=== PATIENT | female | born 1935 | race Caucasian/White ===

== ENCOUNTER 2022-05-10 12:37 | Inpatient (IN) | payer BC, OTHER ==
[~2022-05-10] VITALS: Ht 162.6 cm; Wt 70.3 kg
[2022-05-10 13:04] VITALS: BP_SYST 141
--- NOTE | 2022-05-10 13:10 | NUR ---
Patient triaged and placed in waiting room. VSS and patient appears in no acute distress at this time. Accompanied by DAUGHTER, awaiting available bed, and MD notified of need for MSE.
[2022-05-10 14:32] LABS: BASOPHILS # (AUTO) 0.1 K/uL (0.0-0.2); BASOPHILS % (AUTO) 0.8 % (0.0-2.0); EOSINOPHILS # (AUTO) 0.8 K/uL (0.0-0.4); EOSINOPHILS % (AUTO) 7.9 % (0.0-4.0); HEMOGLOBIN 10.9 g/dL (12.0-16.0); LYMPHOCYTES # (AUTO) 1.8 K/uL (1.0-5.5); LYMPHOCYTES % (AUTO) 18.4 % (20.5-51.5); MEAN CORPUSCULAR HEMOGLOBIN 29 pg (27-31); MEAN CORPUSCULAR HGB CONC 33 % (32-36); MEAN CORPUSCULAR VOLUME 89 fL (79.0-98.0); MONOCYTES # (AUTO) 1.1 K/uL (0.0-1.0); MONOCYTES % (AUTO) 11.3 % (1.7-9.3); NEUTROPHILS # (AUTO) 5.9 K/uL (1.8-7.7); NEUTROPHILS % (AUTO) 61.6 % (40.0-70.0); PLATELET COUNT (AUTO) 377 K/uL (130-430); RED BLOOD CELL COUNT(AUTO) 3.72 MIL/uL (4.2-6.2); RED CELL DISTRIBUTION WIDTH 14.1 % (9.0-15.0); WHITE BLOOD COUNT (AUTO) 9.6 K/uL (4.8-10.8)
[2022-05-10 14:53] LABS: ANION GAP 6 (5-15); CALCIUM 8.8 mg/dL (8.4-11.0); CHLORIDE 99 mmol/L (98-107); CREATININE 0.76 mg/dL (0.55-1.30); GLUCOSE 108 mg/dL (70-99); UREA NITROGEN, BLOOD 14 mg/dL (8-21)
[2022-05-10 15:00] LABS: ALANINE AMINOTRANSFERASE 27 U/L (12-78); ALBUMIN 2.8 g/dL (3.4-4.8); ASPARTATE AMINOTRANSFERASE 22 U/L (10-37); TOTAL BILIRUBIN 0.4 mg/dL (0.0-1.0)
[2022-05-10 16:09] LABS: PROTHROMBIN TIME 10.8 SECS (9.5-12.5)
--- NOTE | 2022-05-10 16:45 | NUR ---
AT THE BEDSIDE WITH DR DUVAL FOR RECTAL EXAM, PT TOLERATED WELL
--- NOTE | 2022-05-10 16:54 | NUR ---
Placed in room 08 . Placed on shelter monitor, blood pressure machine and pulse oximeter. To gown for exam. Side rails up.
--- NOTE | 2022-05-10 16:55 | NUR ---
UA OBTAINED, LABELED AND TAKEN TO LAB
--- NOTE | 2022-05-10 17:20 | NUR ---
86-year-old female who presents to the ED with a 1 day history of black and tarry stools. Patient notes that she has had loose and nonbloody stool over the past 3-4 days. She took Imodium for the symptoms. She additionally notes having associated mild, crampy, and intermittent abdominal pain that is worse after eating "bad foods". Last colonoscopy reportedly 5 years ago and normal. Denies history of lower GI bleed, diverticulitis, or diverticulosis. Not currently on blood thinners. No other alleviating or exacerbating factors. Otherwise, patient denies urinary symptoms, chest pain, hemoptysis, nausea, vomiting, or any other medical complaints at this time.
--- NOTE | 2022-05-10 17:52 | NUR ---
Pt moved to room 6 [address] of [address] family bedside. MD discussed with family admission and procedural plan.
[2022-05-10 17:54] LABS: BILIRUBIN,URINE NEGATIVE (NEGATIVE); COLOR,URINE YELLOW (YELLOW); GLUCOSE,URINE NEGATIVE (NEGATIVE); KETONES,URINE NEGATIVE (NEGATIVE); LEUKOCYTE ESTERASE ,URINE 2+ (NEGATIVE); NITRITE, URINE NEGATIVE (NEGATIVE); PROTEIN URINE NEGATIVE (NEGATIVE); UROBILINOGEN,URINE 0.2 (0.2-1.0)
[2022-05-10 18:07] LABS: BLOOD, URINE TRACE (NEGATIVE)
[2022-05-10 18:08] LABS: CLARITY/URINE SLIGHTLY HAZY (CLEAR)
[2022-05-10 18:37] LABS: BACTERIA,URINE RARE /HPF (None Seen); MUCUS,URINE None Seen /LPF (None Seen); RBC,URINE 0-3 /HPF (0-3)
--- NOTE | 2022-05-10 19:15 | NUR ---
Report given to Pearl ROSS
--- NOTE | 2022-05-10 19:25 | NUR ---
Pt provided medication list with no dosage or route noted. Pt medication list: Lisinopril for htn, latanoprost for glycoma, fluticasone for sinus relief, simethicone for gas relief, pantoprazole 40mg unknown dosage amount.
--- NOTE | 2022-05-10 19:40 | NUR ---
PT RESTING IN BED AWAKE AND ALERT, TALKING TO NICKAGHTER. PT DENIES DISCOMFORT AND PAIN AT THIS TIME. PT VSS, SAFETY PRECAUTIONS IN PLACE AND CONNECTED TO MONITOR.
[2022-05-11] MEDS ORDERED: D5/0.45 NS 1,000 ML IV ONE (00:45)
--- NOTE | 2022-05-11 01:12 | NUR ---
Admit bed requested Patient will be admitted to care of Dr. WINKLER. Admitted to MED SURG unit. Diagnosis GI BLEED Inpatient (Yes or No) YES Observation (Yes or No) NO Orientation concerns or request close to nursing station (Yes or No) NO Covid Status NEGATIVE On vent or bipap NO Isolation requirements NO Needs a sitter NO From Home (Yes or if No enter name of facility) YES Requires Dialysis (Yes or No) NO Med Rec Completed (Yes of No) YES
--- NOTE | 2022-05-11 03:32 | NUR ---
PT RESTING IN BED WITH EYES CLOSED, EVEN AND UNLABORED RESPS NOTED. SAFETY PRECAUTIONS IN PLACE.
[2022-05-11 03:39] LABS: HEMATOCRIT 30.4 % (36-48); HEMOGLOBIN 10.1 g/dL (12.0-16.0)
[2022-05-11] MEDS ORDERED: BENZONATATE 100 MG CAPSULE (TESSALON) PO ONE (04:30)
--- NOTE | 2022-05-11 07:27 | NUR ---
REPORT GIVEN TO YI ROSS TO ASSUME ALL CARE.
--- NOTE | 2022-05-11 07:30 | NUR ---
RECEIVED REPORT FROM RN ROSE, PT IDA. JARRED
[2022-05-11] MEDS ORDERED: PANTOPRAZOLE SODIUM 40 MG/VIAL (PROTONIX) IVP ONE (09:00)
[2022-05-11 11:54] LABS: BASOPHILS # (AUTO) 0.1 K/uL (0.0-0.2); BASOPHILS % (AUTO) 0.9 % (0.0-2.0); EOSINOPHILS # (AUTO) 0.7 K/uL (0.0-0.4); EOSINOPHILS % (AUTO) 8.9 % (0.0-4.0); HEMATOCRIT 32.5 % (36-48); HEMOGLOBIN 10.6 g/dL (12.0-16.0); LYMPHOCYTES # (AUTO) 1.5 K/uL (1.0-5.5); LYMPHOCYTES % (AUTO) 20.1 % (20.5-51.5); MEAN CORPUSCULAR HEMOGLOBIN 29 pg (27-31); MEAN CORPUSCULAR HGB CONC 33 % (32-36); MEAN CORPUSCULAR VOLUME 89 fL (79.0-98.0); MONOCYTES # (AUTO) 0.9 K/uL (0.0-1.0); MONOCYTES % (AUTO) 12.5 % (1.7-9.3); NEUTROPHILS # (AUTO) 4.4 K/uL (1.8-7.7); NEUTROPHILS % (AUTO) 57.6 % (40.0-70.0); PLATELET COUNT (AUTO) 390 K/uL (130-430); RED BLOOD CELL COUNT(AUTO) 3.66 MIL/uL (4.2-6.2); RED CELL DISTRIBUTION WIDTH 13.8 % (9.0-15.0); WHITE BLOOD COUNT (AUTO) 7.6 K/uL (4.8-10.8)
--- NOTE | 2022-05-11 16:00 | NUR ---
RECIEVED PT REPORT FROM CODY RICHMOND. PT IS AWAKE ALERT X3. PT DENIES NVD.
--- NOTE | 2022-05-11 16:30 | NUR ---
PT AMBULATES STEADILY TO THE RESTROOM. AAOX3, BED RAILS UP BED DOWN.
[2022-05-11] MEDS ORDERED: BISACODYL 5 MG TABLET.DR (DULCOLAX) PO ONE (17:00)
[2022-05-11 17:44] LABS: BASOPHILS # (AUTO) 0.1 K/uL (0.0-0.2); BASOPHILS % (AUTO) 0.9 % (0.0-2.0); EOSINOPHILS # (AUTO) 0.5 K/uL (0.0-0.4); EOSINOPHILS % (AUTO) 7.6 % (0.0-4.0); HEMATOCRIT 30.6 % (36-48); HEMOGLOBIN 10.1 g/dL (12.0-16.0); LYMPHOCYTES # (AUTO) 1.6 K/uL (1.0-5.5); LYMPHOCYTES % (AUTO) 21.9 % (20.5-51.5); MEAN CORPUSCULAR HEMOGLOBIN 29 pg (27-31); MEAN CORPUSCULAR HGB CONC 33 % (32-36); MEAN CORPUSCULAR VOLUME 89 fL (79.0-98.0); MONOCYTES # (AUTO) 0.9 K/uL (0.0-1.0); MONOCYTES % (AUTO) 12.9 % (1.7-9.3); NEUTROPHILS # (AUTO) 4.1 K/uL (1.8-7.7); NEUTROPHILS % (AUTO) 56.7 % (40.0-70.0); PLATELET COUNT (AUTO) 353 K/uL (130-430); RED BLOOD CELL COUNT(AUTO) 3.44 MIL/uL (4.2-6.2); RED CELL DISTRIBUTION WIDTH 14.1 % (9.0-15.0); WHITE BLOOD COUNT (AUTO) 7.2 K/uL (4.8-10.8)
[2022-05-11] MEDS ORDERED: GOLYTELY / COLYTE SOLUTION 4 LITERS PO SCH (18:00)
--- NOTE | 2022-05-11 18:28 | NUR ---
PT AWAKE ALERT ORIENTED X3 NO COMPLAINTS, MEDICATED PER MD ORDER, PT EATING CLEAR LIQUID DIET.
--- NOTE | 2022-05-11 19:10 | NUR ---
REPORT GIVEN TO PIPE LINE GAUGERWINDOW CLERK.
[2022-05-11] MEDS: PANTOPRAZOLE SODIUM 40 MG/VIAL (PROTONIX) IVP SCH (19:46)
--- NOTE | 2022-05-11 19:46 | NUR ---
UNABLE TO OBTAIN GOLYTELY AT THIS TIME. PHARMACY DOES NOT ANSWER AND HOUSE SUP IS OCCUPIED AT THE MOMENT. MEDICATION WAS NOT PREPARED BY PHARMACY AND PLACED IN ER AND IS NOT AVAILABLE IN ER [facility]. WILL CONTINUE TO REMIND HOUSE SUP.
--- NOTE | 2022-05-11 20:15 | NUR ---
PREPED PATIENT WITH BEDSIDE COMMODE AND PLACED IN GOWN, PATIENT READY TO RECEIVE GOLYTELY.
[2022-05-11] MEDS ORDERED: PANTOPRAZOLE SODIUM 40 MG/VIAL (PROTONIX) IVP SCH ×2 (21:00)
--- NOTE | 2022-05-11 22:32 | NUR ---
PT IS TOLERATING GOLYTELY WELL.
[2022-05-11 23:07] LABS: BASOPHILS # (AUTO) 0.1 K/uL (0.0-0.2); BASOPHILS % (AUTO) 1.1 % (0.0-2.0); EOSINOPHILS # (AUTO) 0.7 K/uL (0.0-0.4); EOSINOPHILS % (AUTO) 8.3 % (0.0-4.0); HEMATOCRIT 33.2 % (36-48); HEMOGLOBIN 10.9 g/dL (12.0-16.0); LYMPHOCYTES # (AUTO) 2.1 K/uL (1.0-5.5); LYMPHOCYTES % (AUTO) 24.6 % (20.5-51.5); MEAN CORPUSCULAR HEMOGLOBIN 29 pg (27-31); MEAN CORPUSCULAR HGB CONC 33 % (32-36); MEAN CORPUSCULAR VOLUME 89 fL (79.0-98.0); MONOCYTES # (AUTO) 1.1 K/uL (0.0-1.0); MONOCYTES % (AUTO) 12.9 % (1.7-9.3); NEUTROPHILS # (AUTO) 4.5 K/uL (1.8-7.7); NEUTROPHILS % (AUTO) 53.1 % (40.0-70.0); PLATELET COUNT (AUTO) 433 K/uL (130-430); RED BLOOD CELL COUNT(AUTO) 3.73 MIL/uL (4.2-6.2); RED CELL DISTRIBUTION WIDTH 13.9 % (9.0-15.0); WHITE BLOOD COUNT (AUTO) 8.5 K/uL (4.8-10.8)
--- NOTE | 2022-05-12 00:37 | NUR ---
PATIENT IS HAVING A HARD TIME DRINKING THE GOLYTELY, STATES IT IS TOO SALTY AND HAS AN AWFUL TASTE. PATIENT HAS NOT HAD A BOWL MOVEMENT YET.
--- NOTE | 2022-05-12 01:48 | NUR ---
PATIENT HAD FIRST BOWL MOVEMENT.
--- NOTE | 2022-05-12 02:51 | NUR ---
PATIENT HAS HAS SEVERAL LOOSE STOOLS. C/O ABDOMINAL PAIN DUE TO DAIRRHEA.
[2022-05-12] MEDS ORDERED: BENZONATATE 100 MG CAPSULE (TESSALON) PO ONE (05:00)
[2022-05-12 05:35] LABS: BASOPHILS # (AUTO) 0.1 K/uL (0.0-0.2); BASOPHILS % (AUTO) 0.9 % (0.0-2.0); EOSINOPHILS # (AUTO) 0.7 K/uL (0.0-0.4); EOSINOPHILS % (AUTO) 8.4 % (0.0-4.0); HEMATOCRIT 33.8 % (36-48); HEMOGLOBIN 11.1 g/dL (12.0-16.0); LYMPHOCYTES % (AUTO) 25.9 % (20.5-51.5); MEAN CORPUSCULAR HEMOGLOBIN 29 pg (27-31); MEAN CORPUSCULAR HGB CONC 33 % (32-36); MEAN CORPUSCULAR VOLUME 89 fL (79.0-98.0); MONOCYTES % (AUTO) 13.5 % (1.7-9.3); NEUTROPHILS % (AUTO) 51.3 % (40.0-70.0); PLATELET COUNT (AUTO) 406 K/uL (130-430); WHITE BLOOD COUNT (AUTO) 7.7 K/uL (4.8-10.8)
[2022-05-12 05:50] LABS: PROTHROMBIN TIME 10.9 SECS (9.5-12.5)
--- NOTE | 2022-05-12 06:00 | NUR ---
WAITING ON [facility] TO BRING COUGH MEDICATION.
[2022-05-12 06:15] LABS: ANION GAP 6 (5-15); CHLORIDE 101 mmol/L (98-107); CREATININE 0.71 mg/dL (0.55-1.30); GLUCOSE 98 mg/dL (70-99); UREA NITROGEN, BLOOD 9 mg/dL (8-21)
--- NOTE | 2022-05-12 06:50 | NUR ---
Patient threw up. Stated she felt very nauseated from Golytely. Patient feels better after throwing up.
--- NOTE | 2022-05-12 07:05 | NUR ---
Made family aware that patient will be going to GI at 730 and will return at approx. 9am to the ER.
--- NOTE | 2022-05-12 07:20 | NUR ---
Patient will be admitted to care of [facility]. Admitted to MED SURG unit. Will go to room 134A. Belongings list completed. Complete and up to date summary report printed. SBAR report to be given at bedside with opportunity for questions.
--- NOTE | 2022-05-12 08:01 | NUR ---
REPORT GIVEN TO JAQUI ON MED SURG. BELONGINGS FROM ROOM #6 TAKEN TO ROOM. GI LAB INFORMED THAT PT IS TO GO TO 134A
[2022-05-12] MEDS ORDERED: fentaNYL CITRATE/PF 100 MCG/2 ML AMP IVP ONE (08:45)
[2022-05-12] MEDS ORDERED: MIDAZOLAM HCL 5 MG/ML VIAL (VERSED) IV ONE (08:45)
[2022-05-12] MEDS: PSYLLIUM HUSK 1 PKT PACKET PO SCH (09:00)
[2022-05-12] MEDS: PANTOPRAZOLE SODIUM 40 MG/VIAL (PROTONIX) IVP SCH ×2 (09:00→21:29)
--- NOTE | 2022-05-12 09:00 | NUR ---
PT ADMITTED TO [facility]. PT AOX4 ABLE TO MAKE NEEDS KNOWN. RR EVEN AND UNLABORED ON RA. PT SKIN INTACT. BOWL SOUND S ACTIVE. PT EDUCATED TO USE CALL LIGHT IF SHE NEEDS ASSISTANCE. BED ALARM ON. CALL LIGHT WITHIN REACH. ALL NEEDS MEET AT THIS TIME. WILL CONTINUE TO MONITOR
[2022-05-12 16:10] LABS: BASOPHILS # (AUTO) 0.1 K/uL (0.0-0.2); EOSINOPHILS # (AUTO) 0.4 K/uL (0.0-0.4); EOSINOPHILS % (AUTO) 6.4 % (0.0-4.0); HEMATOCRIT 30.8 % (36-48); HEMOGLOBIN 10.2 g/dL (12.0-16.0); LYMPHOCYTES # (AUTO) 1.8 K/uL (1.0-5.5); LYMPHOCYTES % (AUTO) 26.3 % (20.5-51.5); MEAN CORPUSCULAR HEMOGLOBIN 29 pg (27-31); MEAN CORPUSCULAR HGB CONC 33 % (32-36); MEAN CORPUSCULAR VOLUME 89 fL (79.0-98.0); MONOCYTES % (AUTO) 13.8 % (1.7-9.3); NEUTROPHILS # (AUTO) 3.7 K/uL (1.8-7.7); NEUTROPHILS % (AUTO) 52.5 % (40.0-70.0); PLATELET COUNT (AUTO) 366 K/uL (130-430); RED BLOOD CELL COUNT(AUTO) 3.48 MIL/uL (4.2-6.2); RED CELL DISTRIBUTION WIDTH 14.2 % (9.0-15.0)
[2022-05-12 16:40] VITALS: BP_SYST 132
--- NOTE | 2022-05-12 19:50 | NUR ---
PT CLEANED THROUGH SHIFT. PT DID NOT HAVE ANY BLACK TARRY STOOL DURING SHIFT. ENDORSED CARE TO NIGHT RN
[2022-05-12 20:00] VITALS: BP_SYST 121
[2022-05-13] VITALS: BP_SYST 119
[2022-05-13 08:00] VITALS: BP_SYST 106; BP_SYST 140
[2022-05-13] MEDS: PANTOPRAZOLE SODIUM 40 MG/VIAL (PROTONIX) IVP SCH (08:50)
[2022-05-13] MEDS: PSYLLIUM HUSK 1 PKT PACKET PO SCH (08:51)
--- NOTE | 2022-05-13 09:00 | NUR ---
pt seen by Dr Wade at bedside. Md went over out patient plan for the patient.
[2022-05-13] MEDS ORDERED: guaiFENesin/DEXTROMETHORPHAN 10 ML UDC PO PRN (10:30)
[2022-05-13 13:35] VITALS: BP_SYST 132
[2022-05-13] MEDS ORDERED: POLY17PO4 PO (14:40)
[2022-05-13] MEDS ORDERED: DEXL60CA4 PO (14:40)
[2022-05-13 16:06] VITALS: BP_SYST 148
[2022-05-13 16:30] VITALS: BP_SYST 148
--- NOTE | 2022-05-13 18:38 | NUR ---
pt dc home. pt received all education and paperwork. iv removed intact. pt understands to follow up with GI outpatient in a week. id bands removed. pt has all belongings. pt taken to the parking lot via wheelchair. pt taken home by her daughter
== END 2022-05-13 18:38 | disposition home health service (06) | DRG 393 ==
LOC: SED 12:37 → UNDOADMIN 05-11 00:42 → SMU 05-11 00:42 → UNDOADMIN 05-12 08:28 → SMU 05-12 08:31 → UNDODISIN 05-13 18:38
PROVIDERS: ADMIT Specialist; ATTEND Specialist
PROC: 0DB78ZX Excision of Stomach, Pylorus, Via Natural or Artificial Opening Endoscopic, Diagnostic (ICD-10-PCS; principal; 2022-05-12 07:30)
PROC: 0DJD8ZZ Inspection of Lower Intestinal Tract, Via Natural or Artificial Opening Endoscopic (ICD-10-PCS; 2022-05-12 07:30)
DX: K64.8 Other hemorrhoids (principal); K29.71 Gastritis, unspecified, with bleeding; K57.31 Diverticulosis of large intestine without perforation or abscess with bleeding; D62 Acute posthemorrhagic anemia; E44.0 Moderate protein-calorie malnutrition; E78.5 Hyperlipidemia, unspecified; J45.909 Unspecified asthma, uncomplicated; Z20.822 Contact with and (suspected) exposure to COVID-19; I10 Essential (primary) hypertension; K44.9 Diaphragmatic hernia without obstruction or gangrene; Z90.49 Acquired absence of other specified parts of digestive tract; Z90.710 Acquired absence of both cervix and uterus; Z68.26 Body mass index [BMI] 26.0-26.9, adult
CPT/HCPCS: 36415; 43239; 45378; 71045; 76376; 80048; 80053; 81000; 83880; 84484; 85018; 85025; 85610-TC; 85730-TC; 86886; 86900; 86901; 87081; 87086; 88305; 88312; 88313; 93005; 96360; 96361; 99285; C9113; J2250